=== PATIENT | female | born 1945 ===

== ENCOUNTER 2020-06-11 09:15 | Inpatient (IN) | payer OTHER ==
[~2020-06-11] VITALS: Ht 154.9 cm; Wt 82.6 kg
[2020-06-11] MEDS ORDERED: WELLBUTRIN SR100 MG PO (11:48)
[2020-06-11] MEDS ORDERED: COZAAR100 MG PO (11:48)
[2020-06-11] MEDS ORDERED: SINGULAIR10 MG PO (11:49)
[2020-06-11] MEDS ORDERED: CRESTOR5 MG PO (11:49)
[2020-06-11] MEDS ORDERED: CLONAZEPAM2 M1 PO (11:49)
[2020-06-11] MEDS ORDERED: GABAPENTIN800 M1 PO (11:50)
[2020-06-11] MEDS ORDERED: VOLTAREN100 GM (11:50)
[2020-06-18] MEDS ORDERED: MONTELUKAST SOD10 MG (08:01)
[2020-06-18] MEDS ORDERED: BUPROPION XL300 MG (08:01)
[2020-06-18] MEDS ORDERED: ESTAZOLAM1 MG (08:01)
[2020-06-18] MEDS ORDERED: CICLOPIROX6.6 ML (08:01)
[2020-06-18] MEDS ORDERED: ROSUVASTATIN CA10 MG (08:02)
[2020-06-18] MEDS ORDERED: DICLOFENAC SOD100 MG (08:03)
== END 2020-06-21 16:40 | DRG 470 ==
LOC: SURG 06-18 05:20 → O/R 06-18 05:20 → SURH 06-18 07:00 → SURG 06-18 10:19
PROVIDERS: ADMIT Orthopaedic Surgery; ATTEND Orthopaedic Surgery
PROC: 0SRD0J9 Replacement of Left Knee Joint with Synthetic Substitute, Cemented, Open Approach (ICD-10-PCS; principal; 2020-06-18 07:00)
DX: M17.12 Unilateral primary osteoarthritis, left knee (principal); D62 Acute posthemorrhagic anemia; I10 Essential (primary) hypertension